=== PATIENT | female | born 1940 | race African-American/Black ===

== ENCOUNTER → 2017-02-22 | Outpatient (CLI) | payer OTHER ==
[~2017-02-22] MED LIST: ACEON8 MG; ASPIRIN EC81 M1; CARVEDILOL25 MG; CENESTIN0.9 MG; CENTRUM CARDIO; FLEXERIL PO; IBUPROFEN 600600 M1 PO; LOSARTAN POTASS50 MG PO; METOCLOPRAMIDE 55 M1; OMEPRAZOLE20 M2 PO; WELCHOL 625 MG625 MG
== END ==
LOC: RAD 01:25
DX: Z12.31 Encounter for screening mammogram for malignant neoplasm of breast (principal)

== ENCOUNTER → 2018-02-21 | Outpatient (CLI) | payer OTHER | LOC: RAD 01:17 | DX: Z12.31 Encounter for screening mammogram for malignant neoplasm of breast (principal); E78.5 Hyperlipidemia, unspecified; K21.9 Gastro-esophageal reflux disease without esophagitis ==

== ENCOUNTER → 2018-09-03 | Outpatient (CLI) | payer OTHER | LOC: ULTRA 09:06 | DX: E04.2 Nontoxic multinodular goiter (principal) ==

== ENCOUNTER → 2018-09-12 | Outpatient (CLI) | payer OTHER | LOC: CAT 10:18 | DX: J32.9 Chronic sinusitis, unspecified (principal) ==

== ENCOUNTER 2019-01-23 05:44 | Day surgery (SDC) | payer OTHER ==
[~2019-01-23] VITALS: Ht 160 cm; Wt 55.8 kg
[~2019-01-23 05:44] MED LIST changes: +ASPIR 8181 MG PO; +COREG25 MG PO; +ESTRADIOL 1 MG T1 M1 PO; +HYDROCHLOROTHIA25 M2 PO; +MICARDIS 80 MG80 MG PO; +NIFEDIPINE ER30 M1 PO; +PROTONIX40 M1 PO; +TRAMADOL 50 MG50 MG PO; +VITAMIN E400 UNIT PO
[2019-01-23 07:29] VITALS: BP 104/53
--- NOTE | 2019-01-23 08:57 | H ---
[facility] [place] [address] HISTORY AND PHYSICAL Name: LUIS ENRIQUE KRAMER Room #: 150-1 [facility] M.R.#: [id number] Admission: 01/23/19 Attend Phys: Da Holland MD Discharge: Date of : 42 Report #: [id number] THIS REPORT FOR: //name// CC: Da Munizore Egan DATE OF SERVICE: 01/23/2019 SURGERY ON: 01/23/2019. CHIEF COMPLAINT: Sinusitis. HISTORY OF PRESENT ILLNESS: The patient is a 78-year-old female, originally presented to Dr. Eliseo Ham in 08/2018 with a history of sinus pressure, pain, headaches, postnasal drainage and nasal congestion. She was started on oral antibiotics and returned in followup with some improvement in her symptoms. She was noted on CT scan to have right ethmoid and maxillary sinus disease. She was placed on a total of 3 weeks of oral antibiotic therapy and seemed to do well. She returned in October of this year with continued complaints of maxillary pressure and pain and was more interested at this standpoint due to continued symptom complaints with consideration of surgical intervention. In discussion with the patient, more recently, she was seen in urgent care in mid December for GI issues and was placed on Cipro and Imodium on 01/05. At this point, the plan will be for right-sided nasal antral window and partial ethmoidectomy, possibly a left-sided work if significant inflammation is noted. I discussed with the patient the surgical risks and benefits and they are outlined on her hospital chart. Preoperative clearance was obtained by her heart physician as well. ALLERGIES TO MEDICATION: None. MEDICATIONS ON ADMISSION: Carvedilol 12.5 mg once a day, Crestor 5 mg a day, estradiol 1 mg once a day, metoclopramide 5 mg tablet daily, omeprazole 20 mg once a day, tramadol 50 mg every 6 hours as needed for pain, triamterene 37.5/hydrochlorothiazide 25 mg tablet once a day. PAST MEDICAL AND SURGICAL HISTORY: Notable for essential hypertension, gastroesophageal reflux disease, and hypercholesterolemia. . FAMILY HISTORY: Notable for no abnormalities. REVIEW OF SYSTEMS: Otherwise, negative for known GI, , cardiovascular or hematopoietic issues. PHYSICAL EXAMINATION: VITAL SIGNS: Height of 5 feet 2 inches, weight 120 pounds. Last scored blood pressure 120/64. [address] [address] HISTORY AND PHYSICAL Name: LUIS ENRIQUE KRAMER Room #: 150-1 [facility]..#: [id number] Admission: 01/23/19 Attend Phys: Da Holland MD Discharge: Date of : 42 Report #: [id number] HEENT: Reveals a female, appears her stated age. Intranasal examination was unremarkable for significant structural abnormalities and septum is relatively straight. No nasal polyps were noted. Oral cavity and oropharynx were unremarkable. NECK: Normal to palpation. CHEST: Clear. CARDIOVASCULAR: Regular rhythm. ASSESSMENT: History of chronic sinusitis. PLAN: Will be for the above-mentioned surgery. <ELECTRONICALLY SIGNED> By: Da Holland MD 01/23/19 0857 [id number] [id number] Da Holland MD /nt
--- NOTE | 2019-01-23 08:57 | O ---
[facility] [place] [address] OPERATIVE REPORT Name: LUIS ENRIQUE KRAMER Room #: 150-1 [facility] M.R.#: [id number] Admission: 01/23/19 Attend Phys: Da Holland MD Discharge: Date of : 42 Report #: [id number] THIS REPORT FOR: //name// CC: Da Tannervivian Egan DATE OF SERVICE: 01/23/2019 PREOPERATIVE DIAGNOSIS: Chronic sinusitis. POSTOPERATIVE DIAGNOSIS: Chronic sinusitis. PROCEDURES: 1. Right nasal antral window, right anterior ethmoidectomy. 2. Image guidance system. SURGEON: Da Holland MD ANESTHESIA: General oral endotracheal. INDICATIONS: See H and P. TECHNIQUE: After obtaining consent, the patient was brought to the operating suite where appropriate time-out was performed. General oral endotracheal anesthesia was obtained. The bed was turned 90 degrees. Using [employer] guidance system, appropriate fiducials were registered and accuracy was confirmed. The nose was then prepped and draped in the usual sterile fashion. Cottonoids with Afrin were placed in the nares for vasoconstriction. These were then removed. A 1% with 1:100,000 epinephrine was injected on the anterior face of each middle turbinate as well as over the uncinate processes. Attention was turned to the right naris where a 0-degree scope was used to intubate the nares. The middle turbinate and the middle meatus was visualized. There was noted to be edema of the uncinate process and the lateral nasal wall. The middle turbinate was medialized with a Iselin. The uncinate was brought forward with a double ball. The inferior 2/3 of the uncinate was then divided with a side biter and brought forward and removed with the microdebrider blade. Using a double ball, I was able to enter into the maxillary ostia. This was enlarged in anterior and inferior fashion with both side biter, microdebrider, and a 0 degree Manoj-Cut. No substantial inflammation or disease was noted within the maxillary sinus itself. An anterior ethmoidectomy was then performed first dilating the anterior ethmoid bulla with the microdebrider blade following along the floor of the sinus cavity through up to and through the ground lamella and then proceeding superiorly towards the fovea and then returning back anteriorly. Thickened mucosa was noted within some of the ethmoid air cells, but no brooke polyposis or pus was noted. I debrided the mucosa back to healthy appearing air [address] [address] OPERATIVE REPORT Name: LUIS ENRIQUE KRAMER Room #: 150-1 [facility] M.R.#: [id number] Admission: 01/23/19 Attend Phys: Da Holland MD Discharge: Date of : 42 Report #: [id number]. After removing devitalized bone and mucosa, a cottonoid was placed in the right naris for hemostasis. I turned my attention to the left side where there was concern about the possibility of disease within the sphenoid sinus. I lateralized the middle turbinate and lateralized the supreme turbinate with a Iselin. I then was able to take a 0-degree scope back to the sphenoid face where the sphenoid ostia was found to be patent enough to permit the suction entry quite easily. I did not notice any disease in the immediate sphenoid ethmoidal recess region. I then the medialized the middle turbinate and inspected the ethmoid bulla. I was able to easily visualize left maxillary ostia, natural ostia as well. Therefore, no procedure was performed on the left side. I turned back to the right side and removed the cottonoid. There was no active bleeding. There is no sinus CSF, rhinorrhea or herniation of orbital fat. I then placed a single piece of Xerogel between the middle turbinate and lateral nasal wall to prevent any synechia formation. This was inflated with saline and dressed. A mustache dressing was placed on her nose. She was returned back to anesthesia where she was extubated and taken to recovery room in stable condition. ESTIMATED BLOOD LOSS: 5 mL. <ELECTRONICALLY SIGNED> By: Da Holland MD 01/23/19 0857 [id number] Da Holland MD /nt
[2019-01-23 09:12] VITALS: BP 104/53
== END 2019-01-23 09:55 | disposition home or self-care (01) ==
LOC: TBA 05:44 → OR 05:44
DX: J32.2 Chronic ethmoidal sinusitis (principal); J32.0 Chronic maxillary sinusitis; I10 Essential (primary) hypertension; E78.00 Pure hypercholesterolemia, unspecified; I25.2 Old myocardial infarction; K21.9 Gastro-esophageal reflux disease without esophagitis; Z96.641 Presence of right artificial hip joint; Z98.890 Other specified postprocedural states; Z79.82 Long term (current) use of aspirin; Z87.891 Personal history of nicotine dependence; Z79.899 Other long term (current) drug therapy
CPT/HCPCS: 50010; 50101; 50286; 50386; 50398; 50573; 52290; 52291; 53618; 62110; 62900; 64037; 70005

== ENCOUNTER → 2019-02-26 | Outpatient (CLI) | payer OTHER | LOC: BC 01:17 | DX: Z12.31 Encounter for screening mammogram for malignant neoplasm of breast (principal) ==

== ENCOUNTER → 2019-03-05 | Outpatient (CLI) | payer OTHER | LOC: RAD 01:32 | DX: R92.2 Inconclusive mammogram (principal) ==

== ENCOUNTER → 2020-02-05 | Outpatient (CLI) | payer OTHER | LOC: RAD 10:21 | PROVIDERS: ATTEND Internal Medicine Rheumatology | DX: M47.816 Spondylosis without myelopathy or radiculopathy, lumbar region (principal); M54.41 Lumbago with sciatica, right side; M48.061 Spinal stenosis, lumbar region without neurogenic claudication; M25.78 Osteophyte, vertebrae; M47.814 Spondylosis without myelopathy or radiculopathy, thoracic region ==

== ENCOUNTER → 2020-02-19 | Outpatient (CLI) | payer OTHER | LOC: MRI 14:11 | PROVIDERS: ATTEND Internal Medicine Rheumatology | DX: M51.16 Intervertebral disc disorders with radiculopathy, lumbar region (principal); M47.26 Other spondylosis with radiculopathy, lumbar region; M25.78 Osteophyte, vertebrae; M48.061 Spinal stenosis, lumbar region without neurogenic claudication ==

== ENCOUNTER → 2020-03-01 | Outpatient (CLI) | payer OTHER ==
[~2020-03-01] VITALS: Ht 160 cm; Wt 57.6 kg
[~2020-03-01] MED LIST changes: +CHLORTHALIDONE25 MG PO; +DICLOFENAC POTA50 MG PO; +ENTOCORT EC 3 MG3 MG PO; +MEDROL DOSPAK21 TA1 PO; +MELOXICAM7.5 MG PO; +PRALUENT P75 MG/1 ML SUBQ
[2020-03-01 09:23] VITALS: BP 165/75
--- NOTE | 2020-03-01 09:47 | NUR ---
Pain Clinic Assessment: 1. History of Osteoarthritis: RIGHT HIP LUMBAR History of Rheumatoid Arthritis: Not Applicable 2. Height: 5 ft. 3 in. 160.0 cm. Weight: 127.0 lb. oz. 57.607 kg. Patient's BMI: 22.5 3. Vital Signs: BP: 165/75 Pulse: 77 Resp: 16 Temp: 02 Sat: 100 ECG Mon: 4. Pain Intensity: 7 5. Fall Risk: Dizziness: N Needs help standing or walking: N Fallen in the last 3 months: N Fall risk comments: 6. Patient on Blood Thinner: None 7. History of Hypertension: Y 8. Opioid Therapy greater than 6 weeks: N Opiate Contract Signed: 9. Risk Assessment Tool Provided: 2-LOW RISK 10. Functional Assessment Tool: 11. Recreational Drug Use: Never Drug Type: Tobacco Use: Never Smoker Tobacco Type: Amount or Packs/day: How Many Years: Alcohol Use: Yes Frequency: Weekly Quant: 1-2 GLASSES WINE PER WEEK
--- NOTE | 2020-03-15 07:39 | HPC ---
[facility] [place] [address] PAIN MANAGEMENT CONSULTATION Name: LUIS ENRIQUE KRAMER Room #: REG BEBETO Robles.#: [id number] Admission: 03/01/20 Attend Phys: Ketan Samuels DO Discharge: Date of : 42 Report #: [id number] CC: Ketan Egan DATE OF SERVICE: 03/01/2020 REFERRING PHYSICIAN: Dr. Jin James. CHIEF COMPLAINT: Generalized body pain. HISTORY OF PRESENT ILLNESS: As you know, the patient is a pleasant 79-year-old female who reports generalized body pain that began approximately 4 years ago. She has sought treatment initially with [id number] medications, rest and relaxation without improvement. She then discussed her case further with her physician, Dr. Jin James, who had the patient undergo MRI of the lumbar spine, which showed mild borderline central canal stenosis and mild generalized disk osteophyte complexes. There is some disk height loss that is classified as advanced, but there is no neural foraminal stenosis. The patient complains of generalized body pain involving the cervical spine, upper back, lumbar spine, low back pain, and bilateral upper extremities. She has been referred to our clinic to discuss interventional treatment options. The patient reports no injury or trauma that led to symptom development. The patient indicates today her pain is constant, describes the pain as aching muscle spasming and tender. She places current pain score at 3/10, daily average is 7/10, worst pain has been is 9/10. She indicates that pain is exacerbated with all activities, improves with pain medications and osteoarthritic rubs. She has been referred to our service to discuss interventional treatment options if deemed necessary. PAST MEDICAL HISTORY: 1. Hypertension. 2. Coronary artery disease. 3. Gastroesophageal reflux disease. PAST SURGICAL HISTORY: 1. Total hip arthroplasty, right. 2. Total hysterectomy. 3. Percutaneous coronary artery stenting. SOCIAL HISTORY: The patient denies tobacco use. Denies IV or illicit drug use. Occasional alcohol beverage. She is retired, retired about 17 years ago, not receiving workmen's compensation nor is trying to obtain disability benefits. She is not in litigation in regards to her pain. REVIEW OF SYSTEMS: Positive for eye disease, wearing corrective eyewear, blurred and double vision, cataracts, chronic sinus problems with rhinitis, coronary artery disease, status post percutaneous stenting and myocardial infarction, nocturia, frequent and recurrent headaches and sinusitis. All other review of systems negative per 12-point review of systems other than those listed in history of present illness. Pain impact score of 6/70 indicating mild interference of daily activities secondary to pain. ALLERGIES: No known drug allergies. CURRENT MEDICATIONS: Budesonide 3 mg once a day, Praluent 75 mg once a day, chlorthalidone 25 mg per day, meloxicam 7.5 mg once a day, aspirin 81 mg per day, estradiol 1 mg per day, telmisartan 80 mg once a day, tramadol 50 mg every 6 hours p.r.n., carvedilol 25 mg twice a day, pantoprazole 40 mg once a day. IMAGING: MRI of lumbar spine obtained 02/19/2020 shows no focal disk herniations, only mild borderline L3-L4 and L4-L5 central canal stenosis. This is due to mild generalized disk bulge and advanced disk space loss. There is a mild neural foraminal stenosis on the left at L4-L5, no impingement upon the nerve roots. PHYSICAL EXAMINATION: VITAL SIGNS: Blood pressure 165/75, pulse 77, respiratory rate 16 and unlabored. The patient is 100% on room air. Height 5 feet 3 inches tall, weight 127 pounds and BMI calculated 22.5. GENERAL: Well-developed, well-nourished, well-hydrated 79-year-old female appearing stated age. She is in no acute distress, awake, alert and oriented x 3. Current pain score is rated around 7/10. HEENT: Normocephalic, atraumatic. Pupils are equal, round and reactive to light. Extraocular muscles are intact. NEUROLOGIC: Speech is fluent. The patient deemed a good historian. LUNGS: Appear clear. No wheezes, rhonchi or rales. The patient is able to complete sentences without shortness of air. CARDIOVASCULAR: Appears regular. No appreciable gallop, no rub. ABDOMEN: Soft, nontender, nondistended. EXTREMITIES: Show no clubbing, no cyanosis. No appreciable edema. MUSCULOSKELETAL: Palpatory tenderness noted over the paraspinal musculature of the cervical, thoracic and lumbar area. Upper extremity strength, lower extremity strength equal and symmetrical. Appears to be slight deconditioning. Muscle bulk and tone is symmetrical in upper extremities and lower extremities. Seated straight leg raising negative. Supine straight leg raising negative. Christian's test is negative. Modified Gaenslen's positive for some mild axial back pain without radiation of symptoms. Ankle clonus negative. Babinski is negative. Gait is normal. ASSESSMENT: 1. Generalized body pain. 2. Chronic low back pain due to mild facet arthropathy. PLAN: 1. Based on today's physical exam and history the patient has provided, the description the patient uses in regards to pain, it would appear that she is experiencing some mild arthritic changes in the lumbar region. I am unable to elicit any radicular component. The findings on the MRI do not show any nerve root impingement. There is only mild generalized central canal stenosis, which is not the source of symptoms and the foraminal stenosis causes no nerve root impingement and it is on the left side specifically, where the patient is not experiencing any pain at present. We discussed this with the patient today. It would appear that her generalized body pain is due to myofascial issues and we recommend more conservative treatment approach than interventional therapies. Following was discussed with the patient today. We discussed physical therapy, stretching exercises and core strengthening as a treatment course. We also discussed with the patient, medication changes utilizing a consistent nonsteroidal anti-inflammatory for baseline symptoms and the possible use of a steroid pack to reduce the inflammatory process likely the source of symptoms. We cannot rule out fully fibromyalgia as the source of the symptoms. This can be done through her rheumatology physician. We discussed injection therapy, though given the lack of findings in the MRI, I do not feel this is necessary at this time, plus there was no radicular component of the patient's symptoms during evaluation or during her reported history. We also discussed more adjunctive treatment options such as chiropractic manipulation and acupuncture therapy, both of which could be quite beneficial. After reviewing the risks and benefits of all proposed treatment options, the patient chose to make some adjustments in medication management. 2. We will start the patient on diclofenac potassium. I have given the patient a prescription of this medication in the 50 mg tablet form. She will take 1 tab p.o. b.i.d. and discontinue all other nonsteroidal anti-inflammatories in favor of this medication. She will watch for dyspepsia, worsening of blood pressure, lower extremity edema with the use of medication. If she notes improvement, she can remain on this medication. She was given the prescription via e-scribe to a local pharmacy. 3. The patient and I did discuss the possibility of trialing a steroid to determine if her symptoms would improve. We have given her a Medrol Dosepak to trial. If this is effective, she can discuss this further with her rheumatology physician as she may need further evaluation for more based rheumatologic issues. She will trial the Medrol Dosepak if her pain intensifies. 4. We are pleased to advise the patient at this time, the findings of her MRI would not be the source of her symptoms. The mild changes at the L3-L4 and L4-L5 level do not cause any changes within the central canal of concern. There is no nerve root impingement either in the central canal or neural foramen. I am pleased to advise the patient of such today. 5. We wish to thank Dr. James for the opportunity to see the patient in consultation. We will keep you apprised of response to treatment as we address generalized pain disorder. We will keep you apprised of her response to our conservative treatment and we will be returning her care once we have stabilized her on a dose of therapy that appears appropriate for myofascial pain. <ELECTRONICALLY SIGNED> By: Ketan Samuels DO 03/15/20 0739 [id number] Ketan Samuels, DO /nt
== END ==
LOC: PAIN 06:49
PROVIDERS: ATTEND Anesthesiology Pain Medicine
DX: M79.10 Myalgia, unspecified site (principal); G89.29 Other chronic pain; M47.816 Spondylosis without myelopathy or radiculopathy, lumbar region; I10 Essential (primary) hypertension; I25.10 Atherosclerotic heart disease of native coronary artery without angina pectoris; K21.9 Gastro-esophageal reflux disease without esophagitis

== ENCOUNTER → 2020-04-07 | Outpatient (CLI) | payer OTHER | LOC: BC 03-24 09:30 | PROVIDERS: ATTEND Internal Medicine | DX: Z12.31 Encounter for screening mammogram for malignant neoplasm of breast (principal) ==

== ENCOUNTER → 2020-04-27 | Outpatient (CLI) | payer OTHER ==
[~2020-04-27] VITALS: Ht 160 cm; Wt 60.0 kg
--- NOTE | ~2020-04-27 | HPC ---
[facility] [place] [address] PAIN MANAGEMENT CONSULTATION Name: LUIS ENRIQUE KRAMER Room #: REG BEBETO ZavalaMarianoErrolMariano#: [id number] Admission: 04/27/20 Attend Phys: Ketan Samuels DO Discharge: Date of : 42 Report #: [id number] THIS REPORT FOR: cc: Stiven Egan,Ketan Hadley DO ~ CC: Ketan Egan DATE OF SERVICE: 04/27/2020 REFERRING PHYSICIAN: Jin James MD CHIEF COMPLAINT: Generalized body pain, bilateral greater trochanteric pain. HISTORY OF PRESENT ILLNESS: As you know, the patient is a pleasant 79-year-old female who has returned today in followup visit with reports of bilateral greater trochanteric pain exacerbated with standing and climbing stairs. She also complains of right calf pain that she describes as aching in sensation. She also continues to experience axial back pain due to mild facet arthropathy. She was seen in our clinic on 03/01/2020, provided medication management, but apparently did not receive the medications. She did not call back to our clinic to discuss her concerns about the lack of medications being sent to her pharmacy. She returns today stating that she received no information from the pharmacy though we do have confirmation the medications were sent to the pharmacy, were processed and ready for the patient to pick. As you are aware, the patient suffers from no lumbar radiculopathy. She has mild findings in the lumbar spine, not consistent with her symptoms. She has been referred back to our clinic to discuss the adjustments in medication management we provided at last visit. ALLERGIES: No known drug allergies. CURRENT MEDICATIONS: Budesonide 3 mg once a day, Praluent 75 mg once a day, chlorthalidone 25 mg per day, aspirin 81 mg per day, estradiol 1 mg per day, telmisartan 80 mg once a day, tramadol 50 mg p.o. q. 6 hours p.r.n. for pain, carvedilol 25 mg twice a day, pantoprazole 40 mg once a day. SOCIAL HISTORY: The patient denies tobacco use. Denies IV or illicit drug use. Admits to occasional alcohol beverage. She is retired about 17-1/2 years, unaccompanied today. IMAGING: No new imaging available. PQRS: The patient has mild arthritic changes of the lumbar spine. No [address] [address] PAIN MANAGEMENT CONSULTATION Name: LUIS ENRIQUE KRAMER Room #: REG CLI Christiano#: [id number] Admission: 04/27/20 Attend Phys: Ketan Samuels DO Discharge: Date of : 42 Report #: [id number] rheumatoid arthritis. She is placing current pain score at 8/10, not a fall risk, has not had a fall in last 3 months, not on blood thinners, but is treated for hypertension. She is on opioid like medications, but does have a low opiate addiction potential. Pain impact today , minimal interference of daily activities secondary to pain. PHYSICAL EXAMINATION: VITAL SIGNS: Blood pressure 120/72, pulse 75, respiratory rate 18 and unlabored. The patient is 99% on room air. Height 5 feet 3 inches tall, weight 132.2 pounds, BMI calculated 23.4. GENERAL: Well-developed, well-nourished, well-hydrated 79-year-old female appearing stated age, pain is rated today around 8/10. HEENT: Normocephalic, atraumatic. Pupils equal, round and reactive. EXTREMITIES: Show no clubbing, no cyanosis. No appreciable edema. MUSCULOSKELETAL: There appears to be mild palpatory tenderness over the bilateral greater trochanteric areas. No specific bursitis noted. This is generalized pain disorder. Pain is elicited with palpation also from standing from a seated position and rotation of the hips. There is no groin involvement concerning of intrinsic hip pathology. Seated straight leg raising negative. Supine straight leg raising negative. Christian's test is negative. Modified Gaenslen's positive for some axial low back pain. Ankle clonus negative. Babinski is negative. ASSESSMENT: 1. Chronic low back pain due to mild arthritic changes. 2. Myofascial pain. 3. Possible greater trochanteric bursitis. 4. Generalized body pain. PLAN: 1. The patient has returned today in followup visit where we have discussed again the findings of her MRI. I am pleased to advise the patient that there are only minimal to mild changes noted in the lumbar region. There is no central canal nor neural foraminal stenosis consistent with the patient's distribution of pain. The fact that she is having bilateral greater trochanteric bursa pain is not unusual. Treatment for this could be nonsteroidal anti-inflammatory possible use of a Medrol Dosepak and physical therapy. From an axial back pain standpoint, symptoms are related to facet arthropathy and this is minimal to mild in its presentation and interventional treatments would not be recommended. As for the patient's right calf pain there is no source from the lumbar region consistent for lumbar radiculopathy and thus interventional treatments would not be recommended to address that issue. We had this very long discussion today in regards to adjustments in medications. Apparently, the patient did not receive any of the medications provided in our visit of 03/01/2020. 2. The patient will utilize diclofenac 50 mg tablet to be taken twice a day [facility] [address] [place] [address] PAIN MANAGEMENT CONSULTATION Name: LUIS ENRIQUE KRAMER Room #: REG BEBETO Meme#: [id number] Admission: 04/27/20 Attend Phys: Ketan Samuels DO Discharge: Date of : 42 Report #: [id number] with meals. She can increase to 3 times a day only for a short-term as she does have underlying kidney issues. She needs to monitor this carefully. We have advised her to discontinue the use of her meloxicam. This prescription was sent via e-scribe to local pharmacy. 3. The patient is provided a referral to physical therapy twice a week for 6 weeks. We recommend that she get active in the physical therapy program as quickly as possible. I believe strengthening of the core would be quite helpful in improving the patient's overall symptoms as well as improving mobility. The patient will be sent for physical therapy immediately. 4. The patient was provided a Medrol Dosepak. She is to utilize this pack only if her pain becomes intolerable, not to rely on the medication prophylactically. If the patient does resort to the use of the Medrol Dosepak, she is to contact our clinic so that we can be apprised of the response. Prescription was sent via e-scribe to local pharmacy. 5. We will see the patient back in followup visit on an as needed basis. We are hopeful the patient will see good and prolonged benefit with the adjustments made in medication treatment and physical therapy. By: [id number] [id number] Ketan Samuels DO /nt
[2020-04-27 12:37] VITALS: BP 128/72
--- NOTE | 2020-04-27 12:48 | NUR ---
Pain Clinic Assessment: 1. History of Osteoarthritis: RIGHT HIP LUMBAR History of Rheumatoid Arthritis: Not Applicable 2. Height: 5 ft. 3 in. 160.0 cm. Weight: 132.2 lb. oz. 59.965 kg. Patient's BMI: 23.4 3. Vital Signs: BP: 128/72 Pulse: 75 Resp: 18 Temp: 02 Sat: 99 ECG Mon: 4. Pain Intensity: 8 5. Fall Risk: Dizziness: N Needs help standing or walking: N Fallen in the last 3 months: N Fall risk comments: 6. Patient on Blood Thinner: None 7. History of Hypertension: Y 8. Opioid Therapy greater than 6 weeks: N Opiate Contract Signed: 9. Risk Assessment Tool Provided: 2-LOW RISK 10. Functional Assessment Tool: 11. Recreational Drug Use: Never Drug Type: Tobacco Use: Never Smoker Tobacco Type: Amount or Packs/day: How Many Years: Alcohol Use: Yes Frequency: Monthly Quant: 2-3
== END ==
LOC: PAIN 03-22 06:54
PROVIDERS: ATTEND Anesthesiology Pain Medicine
DX: M19.90 Unspecified osteoarthritis, unspecified site (principal); G89.29 Other chronic pain; Z79.891 Long term (current) use of opiate analgesic

== ENCOUNTER 2020-09-11 10:50 | Emergency (ER) | payer OTHER ==
[~2020-09-11] VITALS: Ht 160 cm; Wt 58.5 kg
[2020-09-11 11:47] LABS: ABSOLUTE NEUTROPHILS 1.8 thou/uL (1.4-8.2); BASOPHILS 1.7 % (0.0-2.0); EOSINOPHILS 7.1 % (0.0-3.0); HEMATOCRIT 41.3 % (37.0-47.0); HEMOGLOBIN 13.9 gm/dL (12.0-15.0); LYMPHOCYTES 36.6 % (24.0-44.0); MCH 29.5 pg (26.0-34.0); MCHC 33.6 g/dL (28.0-37.0); MCV 87.9 fL (80.0-100.0); MONOCYTES 9.2 % (1.0-8.0); PLATELET COUNT 231 thou/uL (150-400); POLYS 45.4 % (36.0-66.0); RDW 13.1 % (10.5-14.5)
[2020-09-11 12:16] LABS: ANION GAP 12 mmol/L (7-16); BUN 15 mg/dL (7-18); CALCIUM 8.7 mg/dL (8.5-10.1); CHLORIDE 105 mmol/L (98-107); CO2 26 mmol/L (21-32); CREATININE 1.1 mg/dL (0.6-1.0); GLUCOSE 111 mg/dL (74-106); SODIUM 143 mmol/L (136-145)
[2020-09-11 12:26] LABS: ALBUMIN 3.8 g/dL (3.4-5.0); MAGNESIUM 1.9 mg/dL (1.8-2.4); SGOT 28 U/L (15-37); SGPT 21 U/L (30-65); TOTAL BILIRUBIN 0.7 mg/dL (0.2-1.0); TOTAL PROTEIN 7.5 g/dL (6.4-8.2); TROPONIN-I <0.06 ng/mL (<0.06)
[2020-09-11 13:40] VITALS: BP 141/70
--- NOTE | 2020-09-13 09:21 | EKG ---
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[facility] : 1940 Requested By: Yanick Sharp Order Number: [id number] MD: Elisa Vo Measurements Intervals [place] Rate: 72 P: 61 FL: 177 QRS: 0 QRSD: 97 T: 4 QT: 372 QTc: 408 Interpretive Statements Sinus rhythm Abnormal R-wave progression, late transition Nonspecific ST and T wave abnormality Compared to ECG 12/01/2014 17:16:36 Sinus bradycardia no longer present Electronically Signed On 09-13-2020 9:21:45 CDT by Elias Vo [email or web address] <ELECTRONICALLY SIGNED> By: Elias Vo MD, [facility] 09/13/20 0921 D: 04/1057 105 Elias Vo MD, FACC /EPI
== END 2020-09-11 13:40 | disposition home or self-care (01) ==
LOC: ER 10:50
PROVIDERS: Emergency Medicine Emergency Medical Services
DX: R07.89 Other chest pain (principal); Z87.891 Personal history of nicotine dependence; Z88.8 Allergy status to other drugs, medicaments and biological substances; Z79.82 Long term (current) use of aspirin; Z79.899 Other long term (current) drug therapy; Z90.710 Acquired absence of both cervix and uterus

== ENCOUNTER → 2021-04-10 | Outpatient (CLI) | payer OTHER | LOC: BC 10:41 | DX: Z12.31 Encounter for screening mammogram for malignant neoplasm of breast (principal) ==